=== PATIENT | male | born 2000 | race Hispanic/Latino ===

== ENCOUNTER 2023-06-23 19:42 | Emergency (ER) | payer SELFPAY ==
[2023-06-23 20:41] LABS: SARS-CoV-2 Antigen Rapid Res Negative (Negative)
--- NOTE | 2023-06-23 20:43 | ER ---
Nurse's Notes [facility] Name: Leodan Mcdonough Age: 22 yrs Sex: Male : 2000 Arrival Date: 06/23/2023 Time: 19:42 Bed 6 Private MD: Diagnosis: Influenza A and B Presentation: 06/23 19:49 Chief complaint: Patient states: cough,congestion with nausea,onset Saturday. pf1 19:49 Coronavirus screen: Vaccine status: Patient reports receiving the 1st dose of the Covid pf1 vaccine. Client denies travel out of the [place] in the last 14 days. Client presents with at least one sign or symptom that may indicate coronavirus-19. Ebola Screen: Patient negative for fever greater than or equal to 101.5 degrees Fahrenheit, and additional compatible Ebola Virus Disease symptoms. Initial Sepsis Screen: Does the patient meet any 2 criteria? HR > 90 bpm. No. Patient's initial sepsis screen is negative. Does the patient have a suspected source of infection? No. Patient's initial sepsis screen is negative. Risk Assessment: Do you want to hurt yourself or someone else? Patient reports no desire to harm self or others. 19:49 Method Of Arrival: Ambulatory pf1 19:49 Acuity: TYRELL 4 pf1 20:59 Onset of symptoms is unknown. cm10 Triage Assessment: 20:16 General: Appears in no apparent distress. comfortable, Behavior is calm, cooperative. cm10 20:16 Pain: Denies pain. EENT: No deficits noted. Parent/caregiver reports the patient having cm10 nasal congestion. Neuro: No deficits noted. Aguirre Agitation-Sedation Scale (RASS): 0 - Alert and Calm Level of Consciousness is awake, alert, Oriented to person, place, time, situation. Cardiovascular: No deficits noted. Patient's skin is warm and dry. Respiratory: No deficits noted. Airway is patent Respiratory effort is even, unlabored, Respiratory pattern is regular, symmetrical, Parent/caregiver reports the patient having cough that is non-productive. GI: No deficits noted. Abdomen is obese, Reports nausea. : No deficits noted. No signs and/or symptoms were reported regarding the genitourinary system. Derm: No deficits noted. No signs and/or symptoms reported regarding the dermatologic system. Skin is intact, Skin is pink, warm \T\ dry. Musculoskeletal: No deficits noted. No signs and/or symptoms reported regarding the musculoskeletal system. Range of motion: intact in all extremities. Historical: - Allergies: 19:59 No Known Allergies; pf1 - PMHx: 19:59 Asthma; pf1 - PSHx: 19:59 None; pf1 - Immunization history:: Adult Immunizations up to date, Client reports receiving the Dionicio \T\ Dionicio single-dose vaccine. Last tetanus immunization: < 10 years ago Flu vaccine is not up to date. - Social history:: Smoking status: Patient denies any tobacco usage or history of. Patient/guardian denies using alcohol, street drugs. Screenin:17 [facility] ED Fall Risk Assessment (Adult) History of falling in the last 3 months, cm10 including since admission No falls in past 3 months (0 pts) Confusion or Disorientation No (0 pts) Intoxicated or Sedated No (0 pts) Impaired Gait No (0 pts) Mobility Assist Device Used No (0 pt) Altered Elimination No (0 pt) Score/Fall Risk Level 0 - 2 = Low Risk Oriented to surroundings, Maintained a safe environment, Hourly rounding (assess needs \T\ fall precautionary measures) done. Abuse screen: Denies threats or abuse. Denies injuries from another. Nutritional screening: No deficits noted. Tuberculosis screening: No symptoms or risk factors identified. Assessment: 20:59 Reassessment: PT LEFT PRIOR TO RECEIVING D/C PAPERWORK. cm10 Vital Signs: 19:49 BP 144 / 80; Pulse 110; Resp 20; Temp 99.6; Pulse Ox 96% ; Weight 131.54 kg; Height 5 pf1 ft. 7 in. ; 19:49 Body Mass Index 45.42 (131.54 kg, 170.18 cm) pf1 ED Course: 19:44 Patient arrived in ED. jj6 19:45 Mary Grove PA-C [facility]. sb4 19:45 Levi Mahajan MD is Attending Physician. sb4 19:46 Inez Batres MD is Attending Physician. sb4 19:50 Suresh Coto, SANJIV is Primary Nurse. bp 19:59 Triage completed. pf1 20:16 Flu Sent. cm10 20:16 SARS RAPID Sent. cm10 20:16 Arm band placed on Patient placed in an exam room, on a stretcher. cm10 20:17 No provider procedures requiring assistance completed. COVID swab sent to lab. Flu cm10 and/or RSV swab sent to lab. Patient did not have IV access during this emergency room visit. 20:17 Patient has correct armband on for positive identification. Bed in low position. Call cm10 light in reach. Provided Education on: ER process and procedures.. Administered Medications: No medications were administered Medication: 20:17 VIS not applicable for this client. cm10 Outcome: 20:43 Discharge ordered by . shwetha 20:59 Discharged to home cm10 20:59 Condition: good 20:59 Discharge instructions given to patient, cm10 20:59 Patient left the ED. cm10 Signatures: Suresh Coto, RN RN Shayy Woody Sophia, PA-C PA-C sb4 Finley, Pamala, RN RN pf1 Bella Wright RN RN cm10
--- NOTE | 2023-06-23 20:43 | EDPHYS ---
Physician Documentation [facility] Name: Leodan Mcdonough Age: 22 yrs Sex: Male : 2000 Arrival Date: 06/23/2023 Time: 19:42 Bed 6 Private MD: ED Physician Inez Batres HPI: 06/23 20:23 This 22 yrs old Male presents to ER via Ambulatory with complaints of Cough, sb4 Chest Congestion, Nausea, Decreased Appetite. 20:23 Patient states he has been feeling poorly since Saturday. Reports feeling warm, body sb4 aches, decreased appetite, nausea, sinus congestion, cough, chest pain. He states he feels like his symptoms are getting worse and not better. Positive sick contacts. Historical: - Allergies: 19:59 No Known Allergies; pf1 - PMHx: 19:59 Asthma; pf1 - PSHx: 19:59 None; pf1 - Immunization history:: Adult Immunizations up to date, Client reports receiving the Dionicio \T\ Dionicio single-dose vaccine. Last tetanus immunization: < 10 years ago Flu vaccine is not up to date. - Social history:: Smoking status: Patient denies any tobacco usage or history of. Patient/guardian denies using alcohol, street drugs. ROS: 20:23 MS/Extremity: Negative for injury and deformity, sb4 20:23 Constitutional: Positive for fatigue, fever, malaise, 20:23 Cardiovascular: Positive for chest pain, 20:23 Respiratory: Positive for cough, 20:23 Abdomen/GI: Positive for nausea, 20:23 All other systems are negative, Exam: 20:23 Head/Face: Normocephalic, atraumatic. Eyes: Extra-ocular motions intact. Periorbital sb4 areas with no swelling, redness, or edema. ENT: Mucous membranes moist. Cardiovascular: Regular rate and rhythm with a normal S1 and S2. Respiratory: Lungs have equal breath sounds bilaterally, clear to auscultation and percussion. No rales, rhonchi or wheezes noted. No increased work of breathing, no retractions or nasal flaring. Abdomen/GI: Soft, non-tender, no distension. Skin: Warm, dry with normal turgor. Normal color with no rashes, no lesions, and no evidence of cellulitis. 20:23 Constitutional: The patient appears in no acute distress, alert, awake, obese, Vital Signs: 19:49 BP 144 / 80; Pulse 110; Resp 20; Temp 99.6; Pulse Ox 96% ; Weight 131.54 kg; Height 5 pf1 ft. 7 in. ; 19:49 Body Mass Index 45.42 (131.54 kg, 170.18 cm) pf1 MDM: 19:50 Patient medically screened. sb4 20:23 Differential Diagnosis: Bronchitis Influenza Upper Respiratory Infection Sinusitis sb4 Pharyngitis. 20:42 Data reviewed: vital signs, nurses notes, lab test result(s), and as a result, I will sb4 discharge patient. Counseling: I had a detailed discussion with the patient and/or guardian regarding the historical points, exam findings, and any diagnostic results supporting the discharge/admit diagnosis, lab results, to return to the emergency department if symptoms worsen or persist or if there are any questions or concerns that arise at home. 06/23 20:05 Order name: SARS RAPID; Complete Time: 20:42 sb4 06/23 20:05 Order name: Flu; Complete Time: 20:31 sb4 Administered Medications: No medications were administered Disposition Summary: 06/23/23 20:43 Discharge Ordered Notes: Location: Home sb4 Problem: an ongoing problem sb4 Symptoms: are unchanged sb4 Condition: Stable sb4 Diagnosis - Influenza A and B sb4 Followup: sb4 - With: Emergency Department - When: As needed - Reason: Trouble breathing, Worsening of condition Discharge Instructions: - Discharge Summary Sheet sb4 - Influenza, Adult sb4 Forms: - Work release form sb4 - Medication Reconciliation Form sb4 - Thank You Letter sb4 - Antibiotic Education sb4 - Prescription Opioid Use sb4 - Patient Portal Instructions sb4 - Leadership Thank You Letter sb4 Signatures: Dispatcher [employer] Mary Casanova PA-C PALeatha sb4 Roselyn Castillo RN RN pf1
[2023-06-23 21:05] VITALS: BP 144/80; TEMP 99.6; O2SAT 96
== END 2023-06-23 20:59 | disposition home or self-care (01) ==
LOC: ER 19:42
DX: J10.1 Influenza due to other identified influenza virus with other respiratory manifestations (principal); Z11.52 Encounter for screening for COVID-19
CPT/HCPCS: 36415; 87804; 87811; 99283

== ENCOUNTER 2024-03-17 11:54 | Emergency (ER) | payer SELFPAY ==
[2024-03-17] MEDS ORDERED: KETOROLAC 30 MG/ML INJ ONE (12:36)
[2024-03-17] MEDS ORDERED: DIAZEPAM 5 MG TABLET ONE (12:36)
[2024-03-17] MEDS ORDERED: ONDANSETRON 4 MG/2 ML VIAL ONE (12:36)
[2024-03-17] MEDS ORDERED: NA CHLORIDE 0.9% 1,000 ML ONE (12:37)
[2024-03-17 13:15] LABS: Specific Gravity 1.026 (1.005-1.030); Sqamous Epithelial <5 /HPF (None Seen); Urine Bacteria None Seen /HPF (<20); Urine Bilirubin NEGATIVE (Negative); Urine Blood Negative (Negative); Urine Clarity Turbid (Clear); Urine Color Yellow (Yellow); Urine Culture Reflex Order NOT NEEDED; Urine Glucose NEGATIVE (Negative); Urine Ketones NEGATIVE (Negative); Urine Microscopic Reflex YN ORDER UMIC; Urine Mucus 3+ /HPF (None Seen); Urine Nitrite NEGATIVE (Negative); Urine Protein TRACE (Negative); Urine RBC <5 /HPF (None Seen); Urine Urobilinogen Normal (Normal); Urine WBC <5 /HPF (<5); Urine pH 5.5 (5.0-7.0)
[2024-03-17 13:19] LABS: Absolute Eosinophils 0.1 K/uL (0-0.5); Absolute Lymphocytes (CBC) 2.3 K/uL (0.7-4.9); Absolute Monocytes 0.5 K/uL (0.1-1.3); Absolute Neutrophil 5.9 K/uL (1.8-8.0); Albumin 3.9 g/dL (3.4-5.0); Albumin/Globulin Ratio 0.9 (1.1-1.8); Anion Gap 9.1 mEq/L (5.0-15.0); Basophils % 0.4 % (0-1.3); Bilirubin Total 0.5 mg/dL (0.2-1.0); Eosinophils % 0.7 % (0-4.4); Globulin 4.4 g/dL (2.3-3.5); Hematocrit 45.6 % (39.6-49.0); Hemoglobin 15.4 g/dL (13.6-17.9); Lymphocytes % 26.1 % (15.3-44.8); MCHC 33.7 g/dL (32.0-36.0); MCV 86.1 fL (80-100); MPV 7.8 fL (7.6-11.3); Monocytes % 6.1 % (3.3-12.3); Neutrophils % 66.7 % (41.7-73.7); Platelets 286 thou/uL (152-406); Potassium 4.1 mEq/L (3.5-5.1); Protein, Total 8.3 g/dL (6.4-8.2); Red Cell Distribution Width 13.4 % (12.1-15.2)
--- NOTE | 2024-03-17 14:06 | RAD REPORT ---
EXAM DESCRIPTION: CT - Thoracic Spine W/o Cont - 03/17/2024 1:51 pm CLINICAL HISTORY: back pain COMPARISON: No comparisons TECHNIQUE: Axial CT imaging through the thoracic spine was performed with coronal and sagittal re-fo rmatted images. All CT scans are performed using dose optimization technique as appropriate and may include automated exposure control or mA/KV adjustment according to patient size. FINDINGS: Vertebral body heights and disc spaces are maintained. A compression fracture is not prese nt. No significant disc space narrowing. Thoracic spine alignment is within normal limits. No paraspinal masses or hematoma. Hepatic steatosis. Intervertebral disc detail is inherently limited on CT without gross findings of canal compromise. IMPRESSION: No acute fracture of the thoracic spine. No focal degenerative changes.
--- NOTE | 2024-03-17 14:16 | RAD REPORT ---
EXAM DESCRIPTION: CT - Spine Lumbar Wo Con - 03/17/2024 1:51 pm CLINICAL HISTORY: back pain COMPARISON: No comparisons TECHNIQUE: Axial noncontrast CT imaging of the lumbar spine was performed with coronal and sagittal re-formatted images. All CT scans are performed using dose optimization technique as appropriate and may include automated exposure control or mA/KV adjustment according to patient size. FINDINGS: No acute lumbar spine fracture seen. No aggressive marrow pattern or malalignment. Paraspinal tissues are normal in thickness. No paraspinal abscess or hematoma seen. Intervertebral disc disease assessment is inherently limited by CT. Within these limitations, no high -grade canal stenosis suspected. IMPRESSION: No acute osseus abnormality involving the lumbar spine. Consider MRI follow-up for assessment of disc disease if clinically desired.
--- NOTE | 2024-03-17 17:12 | ER ---
Nurse's Notes [facility] Name: Leodan Mcdonough Age: 23 yrs Sex: Male : 2000 Arrival Date: 03/17/2024 Time: 11:54 Bed 11 Private MD: Diagnosis: Obesity, unspecified;Strain of muscle and tendon of back wall of thorax;Low back pain;Other injury of muscle, fascia and tendon of lower back Presentation: 03/17 12:09 Chief complaint: Patient states: Low back pain since 9:30am this morning. Took the nj1 trash out when pain started, has increased in severity since onset. Has not taken any OTC meds. No known injury. 12:09 Method Of Arrival: Ambulatory [facility] 12:09 Coronavirus screen: Vaccine status: Patient reports receiving the 2nd dose of the covid nj1 vaccine. Ebola Screen: Patient denies travel to an Ebola-affected area in the 21 days before illness onset. Initial Sepsis Screen: Does the patient meet any 2 criteria? No. Patient's initial sepsis screen is negative. Does the patient have a suspected source of infection? No. Patient's initial sepsis screen is negative. Risk Assessment: Do you want to hurt yourself or someone else? Patient reports no desire to harm self or others. Onset of symptoms was March 17, 2024. 12:09 Acuity: TYRELL 4 nj1 Historical: - Allergies: 12:20 No Known Allergies; nj1 - PMHx: 12:20 Asthma; nj1 - Immunization history:: Client reports receiving the 2nd dose of the Covid vaccine. - Infectious Disease History:: Denies. - Social history:: Smoking status: Patient denies any tobacco usage or history of. - Family history:: not pertinent. Screenin:50 [facility] ED Fall Risk Assessment (Adult) History of falling in the last 3 months, cm10 including since admission No falls in past 3 months (0 pts) Confusion or Disorientation No (0 pts) Intoxicated or Sedated No (0 pts) Impaired Gait No (0 pts) Mobility Assist Device Used No (0 pt) Altered Elimination No (0 pt) Score/Fall Risk Level 0 - 2 = Low Risk Oriented to surroundings, Maintained a safe environment, Hourly rounding (assess needs \\T\\ fall precautionary measures) done. Abuse screen: Denies threats or abuse. Denies injuries from another. Nutritional screening: No deficits noted. Tuberculosis screening: No symptoms or risk factors identified. Assessment: 12:50 General: Appears in no apparent distress. comfortable, Behavior is calm, cooperative. cm10 Pain: Complains of pain in mid back area Pain does not radiate. Pain currently is 6 out of 10 on a pain scale. Quality of pain is described as "like I have air in my back". Neuro: No deficits noted. Level of Consciousness is awake, alert, obeys commands, Oriented to person, place, time, situation, Appropriate for age Frame Maker are equal bilaterally Moves all extremities. Gait is steady, Speech is normal. Respiratory: No deficits noted. Airway is patent Respiratory effort is even, unlabored, Respiratory pattern is regular, symmetrical. Musculoskeletal: No deficits noted. Range of motion: intact in all extremities, Reports pain in mid back area Pain is 6 out of 10 on a pain scale. Vital Signs: 12:09 BP 134 / 85; Pulse 80; Resp 18; Temp 98.4; Pulse Ox 98% on R/A; Weight 158.76 kg; nj1 Height 5 ft. 7 in. ; Pain 6/10; 14:00 BP 111 / 65; Pulse 77; Resp 16; Pulse Ox 99% ; Pain 5/10; cm10 12:09 Body Mass Index 54.82 (158.76 kg, 170.18 cm) nj1 12:09 Pain Scale: Adult nj1 14:00 Pain Scale: Adult cm10 Alyssa Coma Score: 14:17 Eye Response: spontaneous(4). Motor Response: obeys commands(6). Verbal Response: ponce oriented(5). Total: 15. ED Course: 11:56 Patient arrived in ED. mr 12:04 Brett Nair MD is Attending Physician. ponce 12:20 Triage completed. nj1 12:21 Arm band placed on. nj1 12:30 Bella Wright, SANJIV is Primary Nurse. cm10 12:50 Patient has correct armband on for positive identification. Bed in low position. Call cm10 light in reach. Side rails up X 1. Provided Education on: ER process and procedures.. Cardiac monitoring not applicable on this patient. 12:50 Initial lab(s) drawn, by me, sent to lab. Urine collected: clean catch specimen. cm10 Inserted saline lock: 20 gauge in right forearm, using aseptic technique. Blood collected. Flushed with 10 mL NS. 13:52 Spine Lumbar Wo Con In Process Unspecified. EDMS 13:53 Thoracic Spine W/o Cont In Process Unspecified. EDGA 14:25 Carlso Denis MD is Referral Physician. [facility] 14:38 No provider procedures requiring assistance completed. IV discontinued, intact, cm10 bleeding controlled, No redness/swelling at site. Pressure dressing applied. Administered Medications: 12:49 Drug: NS 0.9% IV 1000 ml IV at 1 bolus Per protocol; 1000 mL bolus Route: IV; Rate: 1 cm10 bolus; Site: right forearm; 14:38 Follow up: Response: No adverse reaction; IV Status: Completed infusion; IV Intake: cm10 1000ml 12:49 Drug: Ketorolac IVP 30 mg IVP once Route: IVP; Site: right forearm; cm10 13:49 Follow up: Response: No adverse reaction; Marked relief of symptoms cm10 12:49 Drug: Ondansetron IVP 4 mg IVP once; over 2 minutes Route: IVP; Site: right forearm; cm10 13:49 Follow up: Response: No adverse reaction; Marked relief of symptoms cm10 12:49 Drug: Diazepam PO 10 mg PO once Route: PO; cm10 13:49 Follow up: Response: No adverse reaction; Marked relief of symptoms cm10 12:50 Not Given (Not available.): prochlorperazinesuppository 25 mg TN once cm10 Medication: 12:50 VIS not applicable for this client. cm10 Intake: 14:38 IV: 1000ml; Total: 1000ml. cm10 Outcome: 14:26 Discharge ordered by . [facility] 14:38 Discharged to home ambulatory, with friend, cm10 14:38 Condition: good 14:38 Discharge instructions given to patient, Instructed on discharge instructions, follow up and referral plans. medication usage, Demonstrated understanding of instructions, follow-up care, medications, Prescriptions given X 3, 14:39 Patient left the ED. cm10 Signatures: Dispatcher [employer] Brett Galvan MD MD cha Rivera, Mary, Reg Reg mr JeremySoha, RN RN nj1 Bella Wright RN RN cm10
--- NOTE | 2024-03-17 17:13 | EDPHYS ---
Physician Documentation [facility] Name: Leodan Mcdonough Age: 23 yrs Sex: Male : 2000 Arrival Date: 03/17/2024 Time: 11:54 Bed 11 Private MD: ED Physician Brett Nair HPI: 03/17 14:17 This 23 yrs old Male presents to ER via Ambulatory with complaints of Back ponce Pain. 14:17 The patient presents with pain that is acute. The symptoms are located in the low back, ponce lumbar area. Onset: The symptoms/episode began/occurred just prior to arrival. The pain does not radiate. Associated signs and symptoms: The patient has no apparent associated signs or symptoms. The problem was sustained when lifting. Modifying factors: The patient symptoms are alleviated by remaining still, the patient symptoms are aggravated by lifting, movement, walking. Severity of symptoms: At their worst the symptoms were moderate, in the emergency department the symptoms are unchanged. The patient has not experienced similar symptoms in the past. Historical: - Allergies: 12:20 No Known Allergies; nj1 - PMHx: 12:20 Asthma; nj1 - Immunization history:: Client reports receiving the 2nd dose of the Covid vaccine. - Infectious Disease History:: Denies. - Social history:: Smoking status: Patient denies any tobacco usage or history of. - Family history:: not pertinent. ROS: 14:17 Constitutional: Negative for fever, chills, and weight loss, Eyes: Negative for injury, ponce pain, redness, and discharge, ENT: Negative for injury, pain, and discharge, Neck: Negative for injury, pain, and swelling, Cardiovascular: Negative for chest pain, palpitations, and edema, Respiratory: Negative for shortness of breath, cough, wheezing, and pleuritic chest pain, Abdomen/GI: Negative for abdominal pain, nausea, vomiting, diarrhea, and constipation, : Negative for injury, bleeding, discharge, and swelling, MS/Extremity: Negative for injury and deformity, Skin: Negative for injury, rash, and discoloration, Neuro: Negative for headache, weakness, numbness, tingling, and seizure, Psych: Negative for depression, anxiety, suicide ideation, homicidal ideation, and hallucinations, Allergy/Immunology: Negative for hives, rash, and allergies, Endocrine: Negative for neck swelling, polydipsia, polyuria, polyphagia, and marked weight changes, Hematologic/Lymphatic: Negative for swollen nodes, abnormal bleeding, and unusual bruising, 14:17 Back: Positive for injury or acute deformity, decreased range of motion, pain with movement, Exam: 14:17 Constitutional: This is a well developed, well nourished patient who is awake, alert, ponce and in no acute distress. Head/Face: Normocephalic, atraumatic. Eyes: Pupils equal round and reactive to light, extra-ocular motions intact. Lids and lashes normal. Conjunctiva and sclera are non-icteric and not injected. Cornea within normal limits. Periorbital areas with no swelling, redness, or edema. ENT: Nares patent. No nasal discharge, no septal abnormalities noted. Tympanic membranes are normal and external auditory canals are clear. Oropharynx with no redness, swelling, or masses, exudates, or evidence of obstruction, uvula midline. Mucous membranes moist. Neck: Trachea midline, no thyromegaly or masses palpated, and no cervical lymphadenopathy. Supple, full range of motion without nuchal rigidity, or vertebral point tenderness. No Meningismus. Chest/axilla: Normal chest wall appearance and motion. Nontender with no deformity. No lesions are appreciated. Cardiovascular: Regular rate and rhythm with a normal S1 and S2. No gallops, murmurs, or rubs. Normal PMI, no JVD. No pulse deficits. Respiratory: Lungs have equal breath sounds bilaterally, clear to auscultation and percussion. No rales, rhonchi or wheezes noted. No increased work of breathing, no retractions or nasal flaring. Abdomen/GI: Soft, non-tender, with normal bowel sounds. No distension or tympany. No guarding or rebound. No evidence of tenderness throughout. Male : Normal genitalia with no discharge or lesions. Skin: Warm, dry with normal turgor. Normal color with no rashes, no lesions, and no evidence of cellulitis. MS/ Extremity: Pulses equal, no cyanosis. Neurovascular intact. Full, normal range of motion. Neuro: Awake and alert, GCS 15, oriented to person, place, time, and situation. Cranial nerves II-XII grossly intact. Motor strength 5/5 in all extremities. Sensory grossly intact. Cerebellar exam normal. Normal gait. Psych: Awake, alert, with orientation to person, place and time. Behavior, mood, and affect are within normal limits. 14:17 Back: pain, that is moderate, ROM is painful, with all movement, normal spinal alignment noted, CVA tenderness, is absent, muscle spasm, is appreciated in the left low back, left mid back, right mid back and right low back, Vital Signs: 12:09 BP 134 / 85; Pulse 80; Resp 18; Temp 98.4; Pulse Ox 98% on R/A; Weight 158.76 kg; nj1 Height 5 ft. 7 in. ; Pain 6/10; 14:00 BP 111 / 65; Pulse 77; Resp 16; Pulse Ox 99% ; Pain 5/10; cm10 12:09 Body Mass Index 54.82 (158.76 kg, 170.18 cm) nj1 12:09 Pain Scale: Adult nj1 14:00 Pain Scale: Adult cm10 Alyssa Coma Score: 14:17 Eye Response: spontaneous(4). Motor Response: obeys commands(6). Verbal Response: ponce oriented(5). Total: 15. MDM: 12:09 Patient medically screened. ponce 14:20 Differential diagnosis: chronic back pain, Epidural or Perispinal Abcess Epidural or ponce Perispinal Bleed Fatigue Fracture Hydronephrosis Joint Injury Ligament Injury Obesity Osteoarthritis Renal Infarction ruptured disc, spinal injury, sprain, Ureterolithiasis vertebral fracture. Data reviewed: vital signs, nurses notes, lab test result(s), radiologic studies, CT scan. Consideration of Admission/Observation Escalation of care including admission/observation considered. I considered the following discharge prescriptions or medication management in the emergency department Medications were administered in the Emergency Department. See MAR. Independent interpretation of the following test(s) in the Emergency Department CT Scan: My interpretation is CT LUMBAR AND THORACIC. Test considered but Not performed: X-ray: NO XRAYS. Care significantly affected by the following chronic conditions: Obesity, ASTHMA. 03/17 12:58 Order name: Comprehensive Metabolic Panel; Complete Time: 14:12 EDMS 03/17 12:58 Order name: CBC with Automated Diff; Complete Time: 14:12 EDMS 03/17 12:58 Order name: Urinalysis w/ reflexes; Complete Time: 14:12 EDMS 03/17 13:42 Order name: Spine Lumbar Wo Con; Complete Time: 14:27 EDMS 03/17 13:42 Order name: Thoracic Spine W/o Cont; Complete Time: 14:12 EDMS Administered Medications: 12:49 Drug: NS 0.9% IV 1000 ml IV at 1 bolus Per protocol; 1000 mL bolus Route: IV; Rate: 1 cm10 bolus; Site: right forearm; 14:38 Follow up: Response: No adverse reaction; IV Status: Completed infusion; IV Intake: cm10 1000ml 12:49 Drug: Ketorolac IVP 30 mg IVP once Route: IVP; Site: right forearm; cm10 13:49 Follow up: Response: No adverse reaction; Marked relief of symptoms cm10 12:49 Drug: Ondansetron IVP 4 mg IVP once; over 2 minutes Route: IVP; Site: right forearm; cm10 13:49 Follow up: Response: No adverse reaction; Marked relief of symptoms cm10 12:49 Drug: Diazepam PO 10 mg PO once Route: PO; cm10 13:49 Follow up: Response: No adverse reaction; Marked relief of symptoms cm10 12:50 Not Given (Not available.): prochlorperazinesuppository 25 mg W[place] once cm10 Disposition Summary: 03/17/24 14:26 Discharge Ordered Notes: Location: Home ponce Problem: new ponce Symptoms: have improved ponce Condition: Stable ponce Diagnosis - Obesity, unspecified ponce - Strain of muscle and tendon of back wall of thorax ponce - Low back pain ponce - Other injury of muscle, fascia and tendon of lower back ponce Followup: ponce - With: Private Physician - When: 2 - 3 days - Reason: Recheck today's complaints, Continuance of care, Re-evaluation by your physician Followup: ponce - With: Carlos Denis MD - When: 2 - 3 days - Reason: Recheck today's complaints, Re-evaluation by your physician Discharge Instructions: - Discharge Summary Sheet ponce - Acute Back Pain, Adult ponce - Musculoskeletal Pain ponce - Obesity, Adult ponce - Obesity, Adult, [id number] ponce Forms: - Medication Reconciliation Form ponce - Antibiotic Education ponce - Prescription Opioid Use ponce - Patient Portal Instructions ponce - Leadership Thank You Letter ponce Prescriptions: - Diclofenac Sodium 75 mg Oral Tablet Sustained Release - take 1 tablet ORAL route 2 times per day; 30 tablet; Refills: 0, Product ponce Selection Permitted - Medrol (Hugo) 4 mg Oral Tablets, Dose Pack - take 1 tablet ORAL route as directed - follow package instructions; 1 packet; ponce Refills: 0, Product Selection Permitted - Cyclobenzaprine 5 mg Oral tablet - take 1 tablet ORAL route 3 times per day As needed; 21 tablet; Refills: 0, ponce Product Selection Permitted Signatures: Dispatcher [employer] Brett Galvan MD MD cha Jaco, Norma, RN RN nj1 Bella Wright RN RN cm10
[2024-03-18 03:31] VITALS: BP 134/85; TEMP 98.4; O2SAT 98
== END 2024-03-17 14:39 | disposition home or self-care (01) ==
LOC: ER 11:54
DX: S39.092A Other injury of muscle, fascia and tendon of lower back, initial encounter (principal); S29.012A Strain of muscle and tendon of back wall of thorax, initial encounter; E66.9 Obesity, unspecified; Z68.43 Body mass index [BMI] 50.0-59.9, adult
CPT/HCPCS: 36415; 72128; 72131; 80053; 81001; 85025; 96361; 96374; 96375; 99284; J2405; J7030